=== PATIENT | female | born 1990 | race Caucasian/White ===

== ENCOUNTER 2023-06-25 19:36 | Emergency (ER) | payer OTHER, SELFPAY ==
[2023-06-25 19:39] VITALS: BP 138/87
--- NOTE | 2023-06-25 20:10 | ED.GENMED ---
History of Present Illness
General
Chief Complaint: Problems
Source: patient and spouse
Exam Limitations: none
Time Seen by Provider: 06/25/23 20:01
Nursing documentation reviewed up to this point in time: agreed with
Travel History
Have you had any contact with someone who has COVID-19?: No
Do you have any symptoms of coronavirus? Fever > 100 degrees, chills, cough, shortness of breath, sore throat, loss of taste or smell, muscle aches, or headache?: No
History of Present Illness
History of Present Illness:
32 yo female w h/o low progesterone, Miscarriage 3. Presents stating she is 5-6 weeks . Followed by [facility] Dr. Mullins. 4 days ago HCG 12,700, taking PO Progesterone 200 mg daily. Two days ago HCG up only 18% and switched to
vaginal Progesterone 200 mg. Having serial HCG's and had one drawn today at [facility] but not resulted yet. Yesterday felt fleeting sharp pain left groin. This a.m. between 9-10 had throbbing pain in the left groin. She is afraid that since her HCG
only went up 18% she may have an ectopic . Denies abdominal pain, denies vaginal discharge/bleeding.
Past History
Past History
ED Past Medical History: Other (Low progesterone)
ED Past Surgical History: and Orthopedic
Social History
Tobacco: Non-smoker
Alcohol: None
Personal:
Living: with family
Employment: Employed
Review of Systems
Review of Systems
Allergies reviewed?: Yes
All Other Systems: ROS reviewed and negative except as documented in HPI and ROS
Constitutional: Denies fever
ABD/GI: Denies abdominal pain, nausea or vomiting
: Denies dysuria, difficulty voiding, bleeding or discharge
Skin: Reports no symptoms
Neurological: Reports no symptoms
Phy Exam
Physical Exam
Physical Exam:
GENERAL:Tearful. A&Ox3.
CONSTITUTIONAL: Afebrile.
RESPIRATORY: Regular respirations, nonlabored, lungs clear.
CARDIOVASCULAR: Regular rate and rhythm, no murmurs, no rubs.
GI: Soft, nontender, normal BS
MUSCULOSKELETAL: Moves with ease. Well perfused.
SKIN: Warm, dry, pink
PSYCH: Anxious, tearful mood and affect. Well kept, interactive and appropriate
NEUROLOGIC: Awake, alert and oriented. No focal neurological deficits
Course
Orders/Labs/Results
Orders:
Orders
06/25/23 20:02
US W Transvaginal Urgent
Reason For Exam: LLQ pain, 5-6 weeks
06/25/23 20:11
Beta HCG Quantitative Urgent
Is this a screen?: No
Vital Signs
Initial and Last Documented VS:
Initial Vital Signs
Temp Pulse Resp BP Pulse Ox
98 F 74 16 138/87 99
06/25/23 19:39 06/25/23 19:39 06/25/23 19:39 06/25/23 19:39 06/25/23 19:39
Last Documented Vital Signs
Temp Pulse Resp BP Pulse Ox
98 F 74 16 138/87 99
06/25/23 19:39 06/25/23 19:39 06/25/23 19:39 06/25/23 19:39 06/25/23 19:39
Information
Weeks gestation: Weeks: (6)
Location: Location: (Intrauterine)
MDM/Problems Addressed
Differential Diagnosis Includes:
Normal , ectopic, threatened miscarriage, groin strain
MDM/Problems Addressed:
32 yo female w h/o low progesterone, Miscarriage 3. Presents stating she is 5-6 weeks . Followed by [facility] Dr. Mullins. 4 days ago HCG 12,700, taking PO Progesterone 200 mg daily. Two days ago HCG up only 18% and switched to
vaginal Progesterone 200 mg. Having serial HCG's and had one drawn today at [facility] but not resulted yet. Yesterday felt fleeting sharp pain left groin. This a.m. between 9-10 had throbbing pain in the left groin. She is afraid that since her HCG
only went up 18% she may have an ectopic . Denies abdominal pain, denies vaginal discharge/bleeding.
Emotionally distressed, tearful.
06/25/23 10:43 p.m.
Beta HC.00
06/26/23 12:00 a.m.
US [facility] preliminary radiology report read: Single intrauterine dating 6 weeks and 0 days undetermined viability CRL measures 0.25 cm heart flutter detected however no definitive heart rate obtained yolk sac is
present no subchorionic hemorrhage.
Copy of report reviewed with and given to pt
She will contact her [facility] Tuesday (2 days)
*Critical Care Note
Total Time (30-74mins, 75-104mins- exclusive of procedures): Not Applicable
ED Attending Note
-
Portions of this chart may have been created with voice recognition software.� Occasional wrong word or��sound alike� substitutions may have occurred due to the inherent limitations of voice recognition software.
Discharge Plan
Departure
Patient Disposition: Home (Routine Discharge)
Date of Disposition: 06/26/23
Time of Disposition: 00:04
Patient with high blood pressure during this ER visit?: No
Condition: Good
Discharge Problem:
Left groin pain, Early stage of
Instructions: Groin Strain ED
Prescriptions:
No Action
Vitamin Tablet
1 tab PO DAILY
acetaminophen 325 MG tablet
650 mg PO Q4HPRN PRN (Reason: mild pain) 0RF
ibuprofen 600 MG tablet
600 mg PO Q4HPRN PRN (Reason: cramps) 0RF
Referrals:
Your, [facility] doctor [Other] - Follow up in 2-3 days
Cinthya Ontiveros DO [Family Provider] -
Activity Restrictions/Additional Instructions:
As we discussed, your ultrasound and hCG test are normal for your stage of . Contact your [facility] doctor Tuesday to discuss
Interventions
Interventions:
*Risk Screen - Suicide Last Done: 06/25/23 19:39
*General Assessment Last Done: 06/25/23 19:39
*Neglect/Abuse Screening Last Done: 06/25/23 19:39
ED- Fall Risk Assessment Last Done: 06/25/23 21:00
ED-Female Genitourinary Assessment Last Done: 06/25/23 21:00
Discharge Date and Time
Print Language: SPANISH
[2023-06-26 00:55] VITALS: BP 120/75
== END 2023-06-26 01:22 | disposition home or self-care (01) ==
LOC: EMR 19:36
PROVIDERS: Registered Nurse; EMERGENCY PHYSICIAN Emergency Medicine; FAMILY PHYSICIAN Family Medicine
DX: O26.891 Other specified pregnancy related conditions, first trimester (principal); R10.32 Left lower quadrant pain; Z3A.01 Less than 8 weeks gestation of pregnancy
CPT/HCPCS: 99284; 76801; 76817; 84702